=== PATIENT | female | born 1945 | race Caucasian/White ===

== ENCOUNTER 2017-04-13 13:58 | Emergency (ER) | payer MEDICARE, OTHER | END 2017-04-13 15:23 | disposition home or self-care (01) | LOC: BURERS 13:58 | DX: R60.0 Localized edema (principal); M19.90 Unspecified osteoarthritis, unspecified site; Z96.643 Presence of artificial hip joint, bilateral; Z96.653 Presence of artificial knee joint, bilateral | CPT/HCPCS: 85379; 99283 ==